=== PATIENT | male | born 1965 | race Caucasian/White ===

== ENCOUNTER 2020-10-19 10:43 | Outpatient (REF) | payer OTHER, SELFPAY ==
--- NOTE | ~2020-10-19 | XR_ITS ---
EXAMINATION: XR BILATERAL SHOULDER, RIGHT HAND CLINICAL INFORMATION: Pain. COMPARISON: None. TECHNIQUE: 4 views each shoulder. 3 views right hand. FINDINGS: Left Shoulder: There is mild loss of left AC joint space with periarticular spurring. The glenohumeral joint space is normal. No visible acute fracture or dislocation seen. The soft tissues are normal. Right Shoulder: The glenohumeral joint space is maintained. There is loss of right AC joint space with hypertrophic bony spurring. There is no loose bodies or bony erosive changes. The soft tissues are normal. Right Hand: There is loss of PIP and DIP joint space with periarticular spurring. No bony erosive changes seen. MCP joint space is normal. XR/XR shoulder RT 1V IMPRESSION: Mild degenerative changes bilateral AC joints. No fracture or dislocation seen. Mild degenerative changes PIP and DIP joints left hand.
--- NOTE | ~2020-10-19 | XR_ITS ---
EXAMINATION: XR BILATERAL SHOULDER, RIGHT HAND CLINICAL INFORMATION: Pain. COMPARISON: None. TECHNIQUE: 4 views each shoulder. 3 views right hand. FINDINGS: Left Shoulder: There is mild loss of left AC joint space with periarticular spurring. The glenohumeral joint space is normal. No visible acute fracture or dislocation seen. The soft tissues are normal. Right Shoulder: The glenohumeral joint space is maintained. There is loss of right AC joint space with hypertrophic bony spurring. There is no loose bodies or bony erosive changes. The soft tissues are normal. Right Hand: There is loss of PIP and DIP joint space with periarticular spurring. No bony erosive changes seen. MCP joint space is normal. XR/XR shoulder LT 1V IMPRESSION: Mild degenerative changes bilateral AC joints. No fracture or dislocation seen. Mild degenerative changes PIP and DIP joints left hand.
--- NOTE | ~2020-10-19 | XR_ITS ---
EXAMINATION: XR BILATERAL SHOULDER, RIGHT HAND CLINICAL INFORMATION: Pain. COMPARISON: None. TECHNIQUE: 4 views each shoulder. 3 views right hand. FINDINGS: Left Shoulder: There is mild loss of left AC joint space with periarticular spurring. The glenohumeral joint space is normal. No visible acute fracture or dislocation seen. The soft tissues are normal. Right Shoulder: The glenohumeral joint space is maintained. There is loss of right AC joint space with hypertrophic bony spurring. There is no loose bodies or bony erosive changes. The soft tissues are normal. Right Hand: There is loss of PIP and DIP joint space with periarticular spurring. No bony erosive changes seen. MCP joint space is normal. XR/XR hand RT 2V IMPRESSION: Mild degenerative changes bilateral AC joints. No fracture or dislocation seen. Mild degenerative changes PIP and DIP joints left hand.
[2020-10-19 11:41] LABS: Hematocrit 41.5 % (42-52); Hemoglobin 13.8 g/dl (14.0-18.0); Mean Corpuscular HGB Conc 33.3 g/dl (31.0-36.0); Mean Corpuscular Hemoglobin 28.6 pg (27.0-33.0); Mean Corpuscular Volume 85.9 fL (80-98); Mean Platelet Volume 11.6 fL (9.4-12.4); Platelet Count 146 X10*3/uL (160-400); Red Blood Count 4.83 X10*6/uL (4.60-5.80); Red Cell Distribution Width 12.3 % (11.0-16.0); White Blood Count 5.9 X10*3/uL (4.8-10.8)
[2020-10-19 12:26] LABS: Prostate Specific Antigen Scr 0.81 ng/mL (<0.05-4.0); TSH reflex Free T4 0.91 uIU/mL (0.32-4.0)
[2020-10-19 12:29] LABS: Creatinine Urine 139.61 mg/dL; Microalbum/Creatinine Ratio Ur 5.7 ug/mg cr
[2020-10-19 12:34] LABS: Alanine Aminotransferase 25 U/L (0-40); Albumin Level 4.3 g/dL (3.5-5.0); Alkaline Phosphatase 68 U/L (39-117); Anion Gap 10 (12-20); Aspartate Amino Transferase 21 U/L (5-37); Bilirubin Total 0.6 mg/dL (0.0-1.0); Blood Urea Nitrogen 14 mg/dL (9-16); Calcium 9.2 mg/dL (8.4-10.2); Carbon Dioxide 29 mmol/L (22-29); Chloride 104 mmol/L (96-108); Cholesterol 150 mg/dL; Estimated Glomerular Filt Rate > 60; Glucose Fasting 109 mg/dL (60-99); HDL Cholesterol 34 mg/dL; LDL Cholesterol Calculated 56 mg/dl; Potassium 3.9 mmol/L (3.3-5.1); Sodium 139 mmol/L (135-145); Total Protein 6.9 g/dL (6.5-8.0); Triglycerides 304 mg/dL
== END 2020-10-19 10:44 | disposition home or self-care (01) ==
LOC: HO.LAB 10:43
PROVIDERS: PCP Physician Assistant; Visit Provider Physician Assistant
DX: S60.551A Superficial foreign body of right hand, initial encounter (principal); M77.8 Other enthesopathies, not elsewhere classified; I10 Essential (primary) hypertension; E78.5 Hyperlipidemia, unspecified; Z12.5 Encounter for screening for malignant neoplasm of prostate
CPT/HCPCS: 36415; 73020; 73120; 80053; 80061; 82043; 84153; 84443; 85027

== ENCOUNTER 2021-01-19 18:31 | Emergency (ER) | payer OTHER, SELFPAY ==
--- NOTE | 2021-01-19 | ECG_ITS ---
Test Reason : CHEST PAIN Blood Pressure : / mmHG Vent. Rate : 077 BPM Atrial Rate : 077 BPM P-R Int : 140 ms QRS Dur : 080 ms QT Int : 390 ms P-R-T Axes : 018 -31 004 degrees QTc Int : 441 ms Normal sinus rhythm Left axis deviation Possible Anterior infarct , age undetermined - could be from body habitus and lead placement Abnormal ECG No previous ECGs available Referred By: Generic ED Physician Electronically Signed By:ELIER DAWKINS
--- NOTE | ~2021-01-19 | XR_ITS ---
EXAMINATION: XR CHEST CLINICAL INFORMATION: Chest pain COMPARISON: None TECHNIQUE: 2 views of the chest were obtained. FINDINGS: The lungs are well expanded. There is no focal consolidation, edema, or effusion. No pneumothorax. The cardiomediastinal silhouette is within normal limits. No acute osseous abnormality. Degenerative changes of the spine. XR/XR chest 2V IMPRESSION: Clear lungs.
[2021-01-19 18:47] VITALS: BP 114/81; PULSE 79; RESP 18; TEMP 37.1; O2SAT 97; BMI 29.2
[2021-01-19 21:42] LABS: Basophils Percent Auto 0.4 % (0-2); Eosinophils Absolute Auto 0.1 X10*3/uL (0.0-0.4); Hematocrit 42.8 % (42-52); Hemoglobin 14.2 g/dl (14.0-18.0); Imm Gran Abs Auto 0.03 X10*3/uL (0.00-0.03); Imm Gran Pct Auto 0.4 % (0.0-0.4); Lymphocytes Absolute Auto 1.8 X10*3/uL (1.2-4.9); Lymphocytes Percent Auto 25.5 % (20-40); MANUAL DIFF FLAG NO; Mean Corpuscular HGB Conc 33.2 g/dl (31.0-36.0); Mean Corpuscular Hemoglobin 29.2 pg (27.0-33.0); Mean Corpuscular Volume 87.9 fL (80-98); Mean Platelet Volume 10.8 fL (9.4-12.4); Monocytes Absolute Auto 0.5 X10*3/uL (0.1-1.2); Monocytes Percent Auto 7.2 % (2-11); Neutrophils Absolute Auto 4.5 X10*3/uL (2.0-8.3); Neutrophils Percent Auto 65.5 % (45-73); Platelet Count 154 X10*3/uL (160-400); Red Blood Count 4.87 X10*6/uL (4.60-5.80); Red Cell Distribution Width 12.4 % (11.0-16.0); White Blood Count 6.9 X10*3/uL (4.8-10.8)
[2021-01-19 21:47] LABS: Prothrombin Time 11.6 SEC (9.9-13.0)
--- NOTE | 2021-01-19 21:47 | ED_ITS ---
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 He denies that he gets worse with deep inspiration or any specific movement. Related Data Previous Rx's Medication Instructions Recorded atorvastatin 20 mg tablet 20 mg PO DAILY #90 tab 08/09/20 amlodipine 5 mg tablet 5 mg PO DAILY #90 tab 11/01/20 benazepril 20 mg tablet 10 mg PO DAILY 90 Days #45 tab 11/09/20 Allergies Allergy/AdvReac Type Severity Reaction Status Date / Time No Known Allergies Allergy Verified 10/09/20 09:18 Review of Systems Review of Systems: Pertinent positives and negatives as stated in HPI 10 point review of systems is otherwise negative. PMFSH Past Medical History Source: nursing notes reviewed Medical History HLD (hyperlipidemia) HTN (hypertension) Prediabetes Family History Family History Father Heart attack Hx of CABG Social History Social History Alcohol intake: current Alcohol intake frequency: holidays/special occasions only Advance Directives: No Advance Directives Information Provided: Yes Current occupation: [employer] Physical Exam Vital Signs: Vital Signs: Last Vital Signs Temp 98.8 F 01/19/21 18:47 Pulse 72 01/19/21 21:59 Resp 16 01/19/21 21:59 BP 114/81 01/19/21 18:47 Pulse Ox 99 01/19/21 21:59 Body Mass Index 29.2 VITAL SIGNS: Reviewed. GENERAL: Well developed, well nourished, in no acute distress. HEAD: Normocephalic/atraumatic EYES: PERRLA, EOMI EARS: Ext canals without abnormality, TMs non-bulging and non-erythematous NOSE: Nares patent bilateral OROPHARYNX: no oral lesions noted, posterior pharynx clear and non-erythematous without noted tonsillar enlargement/erythema/exudates NECK: Supple, no adenopathy LUNGS: Normal breath sounds. No adventitious sounds or accessory muscle use. SpO2<97>, palpation over left chest wall does not reproduce patient's symptoms. CARDIOVASCULAR: Regular rate and rhythm without noted murmurs, no JVD or lower extremity edema. ABDOMEN: Soft, non-tender, non-distended with bowel sounds. MUSCULOSKELETAL: No tenderness, deformities, or effusions noted on gross inspection. EXTREMITIES: No cyanosis, clubbing or edema. SKIN: Inspection of the skin reveals no rashes NEUROLOGIC: Alert and oriented x 4. Strength and sensation to light touch were grossly intact x 4. Course Course Course Narrative: 55-year-old male with history and clinical presentation suggestive of possible costochondritis, but will rule out cardiopulmonary etiologies. Review of all investigations negative for acute findings to demonstrate pneumo memo or cardiac etiology for patient's symptoms and suspect that given the repetitive nature of patient's job this is likely to be an inflammatory process such as costochondritis. Patient is currently asymptomatic and all results were discussed with him at bedside. Will be discharged home in stable condition with instructions to follow-up with his primary care provider. MDM - Chest Pain Lab Data Result diagrams: 01/19/21 21:36 01/19/21 21:36 Labs: Lab Results 01/19/21 01/19/21 01/19/21 Range/Units 21:36 21:36 21:36 WBC 6.9 (4.8-10.8) X10*3/uL RBC 4.87 (4.60-5.80) X10*6/uL Hgb 14.2 (14.0-18.0) g/dl Hct 42.8 (42-52) % MCV 87.9 (80-98) fL MCH 29.2 (27.0-33.0) pg MCHC 33.2 (31.0-36.0) g/dl RDW 12.4 (11.0-16.0) % Plt Count 154 L (160-400) X10*3/uL MPV 10.8 (9.4-12.4) fL Immature Gran % (Auto) 0.4 (0.0-0.4) % Neut % (Auto) 65.5 (45-73) % Lymph % (Auto) 25.5 (20-40) % [place] % (Auto) 7.2 (2-11) % Eos % (Auto) 1.0 (0-4) % Baso % (Auto) 0.4 (0-2) % Lymph # (Auto) 1.8 (1.2-4.9) X10*3/uL [place] # (Auto) 0.5 (0.1-1.2) X10*3/uL Eos # (Auto) 0.1 (0.0-0.4) X10*3/uL Baso # (Auto) 0.0 (0.0-0.2) X10*3/uL Abs Immat Gran (auto) 0.03 (0.00-0.03) X10*3/uL Absolute Neuts (auto) 4.5 (2.0-8.3) X10*3/uL Absolute Nucleated RBC 0.000 (0.0-0.012) X10*3/uL Nucleated RBC % (auto) 0.0 (0.0-0.2) /100WBC PT 11.6 (9.9-13.0) SEC INR 1.0 (0.9-1.1) Sodium 147 H (135-145) mmol/L Potassium 4.3 (3.3-5.1) mmol/L Chloride 108 (96-108) mmol/L Carbon Dioxide 29 (22-29) mmol/L Anion Gap 14 (12-20) BUN 19 H (9-16) mg/dL Creatinine 1.08 (0.5-1.4) mg/dL Estim Creat Clear Calc 70.8 Estimated GFR > 60 Random Glucose 127 H (60-115) mg/dL Calcium 9.8 D (8.4-10.2) mg/dL Total Bilirubin 0.6 (0.0-1.0) mg/dL AST 24 (5-37) U/L ALT 35 (0-40) U/L Alkaline Phosphatase 78 (39-117) U/L Troponin I High Sens (<3.5-35.0) ng/L Total Protein 7.6 (6.5-8.0) g/dL Albumin 4.5 (3.5-5.0) g/dL 01/19/21 Range/Units 21:36 WBC (4.8-10.8) X10*3/uL RBC (4.60-5.80) X10*6/uL Hgb (14.0-18.0) g/dl Hct (42-52) % MCV (80-98) fL MCH (27.0-33.0) pg MCHC (31.0-36.0) g/dl RDW (11.0-16.0) % Plt Count (160-400) X10*3/uL MPV (9.4-12.4) fL Immature Gran % (Auto) (0.0-0.4) % Neut % (Auto) (45-73) % Lymph % (Auto) (20-40) % [place] % (Auto) (2-11) % Eos % (Auto) (0-4) % Baso % (Auto) (0-2) % Lymph # (Auto) (1.2-4.9) X10*3/uL [place] # (Auto) (0.1-1.2) X10*3/uL Eos # (Auto) (0.0-0.4) X10*3/uL Baso # (Auto) (0.0-0.2) X10*3/uL Abs Immat Gran (auto) (0.00-0.03) X10*3/uL Absolute Neuts (auto) (2.0-8.3) X10*3/uL Absolute Nucleated RBC (0.0-0.012) X10*3/uL Nucleated RBC % (auto) (0.0-0.2) /100WBC PT (9.9-13.0) SEC INR (0.9-1.1) Sodium (135-145) mmol/L Potassium (3.3-5.1) mmol/L Chloride (96-108) mmol/L Carbon Dioxide (22-29) mmol/L Anion Gap (12-20) BUN (9-16) mg/dL Creatinine (0.5-1.4) mg/dL Estim Creat Clear Calc Estimated GFR Random Glucose (60-115) mg/dL Calcium (8.4-10.2) mg/dL Total Bilirubin (0.0-1.0) mg/dL AST (5-37) U/L ALT (0-40) U/L Alkaline Phosphatase (39-117) U/L Troponin I High Sens < 3.5 (<3.5-35.0) ng/L Total Protein (6.5-8.0) g/dL Albumin (3.5-5.0) g/dL ECG Data ECG #1: Interpretation: Normal sinus rhythm, HR-77, no STEMI, MN/QRS/QTC are within normal limits. Discharge Plan Discharge Clinical Impression: Atypical chest pain, Acute costochondritis Patient Disposition: Home, Self-Care Instructions: Costochondritis (ED) Additional Instructions: 1. Resume all home medications as prescribed. 2. Tylenol 1000 mg, orally, every 6 hours as needed for pain control. Do not exceed 4000 mg within 24 hours. 3. Lidocaine patch, these are available [id number], apply to area of maximal pain as directed on the outside packaging. 4. For breakthrough pain recommend ibuprofen 400 mg, orally with milk or food, every 6 hours as needed for pain control. 5. Recommend following up with the primary care provider in the next 2-3 days for re-evaluation and further outpatient management. Return to the ER for acute worsening of her symptoms. Prescriptions: No Action atorvastatin 20 mg tablet 20 mg PO DAILY Qty: 90 RF: 0 amlodipine 5 mg tablet 5 mg PO DAILY Qty: 90 RF: 1 benazepril 20 mg tablet 10 mg PO DAILY 90 Days Qty: 45 RF: 1 Referrals: Physician,Unknown [Primary Care Provider] - 2 days
[2021-01-19 21:59] VITALS: PULSE 72; RESP 16; O2SAT 99
[2021-01-19] MEDS: Acetaminophen 325 MG TABLET 975 MG PO (22:04)
[2021-01-19] MEDS: Ibuprofen 400 MG TABLET PO (22:04)
[2021-01-19 22:05] LABS: Alanine Aminotransferase 35 U/L (0-40); Albumin Level 4.5 g/dL (3.5-5.0); Alkaline Phosphatase 78 U/L (39-117); Anion Gap 14 (12-20); Aspartate Amino Transferase 24 U/L (5-37); Bilirubin Total 0.6 mg/dL (0.0-1.0); Blood Urea Nitrogen 19 mg/dL (9-16); Calcium 9.8 mg/dL (8.4-10.2); Carbon Dioxide 29 mmol/L (22-29); Chloride 108 mmol/L (96-108); Creatinine Clr Calc Pharmacy 70.8; Estimated Glomerular Filt Rate > 60; Glucose Random 127 mg/dL (60-115); Potassium 4.3 mmol/L (3.3-5.1); Sodium 147 mmol/L (135-145); Total Protein 7.6 g/dL (6.5-8.0)
[2021-01-19] MEDS: Lidocaine 4 % Patch ADH..PATCH 1 PATCH TRANSDERMA (22:07)
[2021-01-19 22:10] LABS: Troponin-I High Sensitivity < 3.5 ng/L (<3.5-35.0)
== END 2021-01-19 23:59 | disposition home or self-care (01) ==
PROVIDERS: Emergency Provider Student in an Organized Health Care Education/Training Program
DX: M94.0 Chondrocostal junction syndrome [Tietze] (principal); R07.9 Chest pain, unspecified; I25.10 Atherosclerotic heart disease of native coronary artery without angina pectoris; Z79.899 Other long term (current) drug therapy
CPT/HCPCS: 36415; 71046; 80053; 84484; 85025; 85610; 93005; 99283; 99284

== ENCOUNTER 2021-08-13 10:14 | Outpatient (REF) | payer OTHER, SELFPAY ==
[2021-08-13 10:59] LABS: Hematocrit 42.7 % (42.0-52.0); Mean Corpuscular HGB Conc 32.8 g/dl (31.0-36.0); Mean Corpuscular Hemoglobin 28.2 pg (27.0-33.0); Mean Corpuscular Volume 85.9 fL (80.0-98.0); Platelet Count 142 X10*3/uL (160-400); Red Blood Count 4.97 X10*6/uL (4.60-5.80); Red Cell Distribution Width 12.4 % (11.0-16.0); White Blood Count 6.8 X10*3/uL (4.8-10.8)
[2021-08-13 11:09] LABS: Estimated Average Glucose 137 mg/dL; Hemoglobin A1c % 6.4 %
[2021-08-13 11:27] LABS: Alanine Aminotransferase 26 U/L (0-40); Albumin Level 4.2 g/dL (3.5-5.0); Alkaline Phosphatase 70 U/L (39-117); Anion Gap 11 (12-20); Aspartate Amino Transferase 22 U/L (5-37); Bilirubin Total 0.7 mg/dL (0.0-1.0); Blood Urea Nitrogen 15 mg/dL (9-16); Calcium 9.6 mg/dL (8.4-10.2); Carbon Dioxide 28 mmol/L (22-29); Chloride 103 mmol/L (96-108); Cholesterol 158 mg/dL; Estimated Glomerular Filt Rate > 60; Glucose Fasting 109 mg/dL (60-99); HDL Cholesterol 33 mg/dL; LDL Cholesterol Calculated 57 mg/dl; Potassium 4.4 mmol/L (3.3-5.1); Sodium 138 mmol/L (135-145); Total Protein 7.1 g/dL (6.5-8.0); Triglycerides 342 mg/dL
[2021-08-13 11:51] LABS: Prostate Specific Antigen Scr 0.95 ng/mL (<0.05-4.0); TSH reflex Free T4 1.18 uIU/mL (0.32-4.0)
[2021-08-13 12:05] LABS: Creatinine Urine 231.96 mg/dL
== END 2021-08-13 10:15 | disposition home or self-care (01) ==
LOC: HO.LAB 10:14
PROVIDERS: PCP Physician Assistant; Visit Provider Physician Assistant
DX: I10 Essential (primary) hypertension (principal); R73.09 Other abnormal glucose; E78.2 Mixed hyperlipidemia; Z12.5 Encounter for screening for malignant neoplasm of prostate
CPT/HCPCS: 36415; 80053; 80061; 82043; 83036; 84153; 84443; 85027

== ENCOUNTER 2022-03-11 11:44 | Outpatient (REF) | payer OTHER, SELFPAY ==
[2022-03-11 12:47] LABS: Estimated Average Glucose 128 mg/dL; Hemoglobin A1c % 6.1 %
[2022-03-11 12:49] LABS: Alanine Aminotransferase 25 U/L (0-40); Albumin Level 4.6 g/dL (3.5-5.0); Alkaline Phosphatase 77 U/L (39-117); Anion Gap 16 (12-20); Aspartate Amino Transferase 23 U/L (5-37); Bilirubin Total 0.4 mg/dL (0.0-1.0); Blood Urea Nitrogen 13 mg/dL (9-16); Calcium 9.5 mg/dL (8.4-10.2); Carbon Dioxide 26 mmol/L (22-29); Chloride 103 mmol/L (96-108); Cholesterol 162 mg/dL; Estimated Glomerular Filt Rate > 60; Glucose Fasting 100 mg/dL (60-99); HDL Cholesterol 38 mg/dL; LDL Cholesterol Calculated 64 mg/dl; Potassium 4.3 mmol/L (3.3-5.1); Sodium 141 mmol/L (135-145); Total Protein 7.7 g/dL (6.5-8.0); Triglycerides 302 mg/dL
[2022-03-11 13:09] LABS: TSH reflex Free T4 0.88 uIU/mL (0.32-4.0)
== END 2022-03-11 11:45 | disposition home or self-care (01) ==
LOC: HO.LAB 11:44
PROVIDERS: PCP Physician Assistant; Visit Provider Physician Assistant
DX: I10 Essential (primary) hypertension (principal); R73.09 Other abnormal glucose; E78.2 Mixed hyperlipidemia; R07.9 Chest pain, unspecified
CPT/HCPCS: 36415; 80053; 80061; 83036; 84443

== ENCOUNTER 2022-09-07 09:58 | Outpatient (REF) | payer OTHER, SELFPAY ==
[2022-09-07 12:24] LABS: Hematocrit 44.6 % (42.0-52.0); Hemoglobin 14.5 g/dl (14.0-18.0); Mean Corpuscular HGB Conc 32.5 g/dl (31.0-36.0); Mean Corpuscular Hemoglobin 28.4 pg (27.0-33.0); Mean Corpuscular Volume 87.3 fL (80.0-98.0); Mean Platelet Volume 11.4 fL (9.4-12.4); Platelet Count 159 X10*3/uL (160-400); Red Blood Count 5.11 X10*6/uL (4.60-5.80); Red Cell Distribution Width 12.1 % (11.0-16.0); White Blood Count 5.4 X10*3/uL (4.8-10.8)
[2022-09-07 12:36] LABS: Estimated Average Glucose 131 mg/dL; Hemoglobin A1c % 6.2 %
[2022-09-07 12:47] LABS: Alanine Aminotransferase 22 U/L (0-40); Albumin Level 4.5 g/dL (3.5-5.0); Alkaline Phosphatase 77 U/L (39-117); Anion Gap 12 (12-20); Aspartate Amino Transferase 24 U/L (5-37); Bilirubin Total 0.8 mg/dL (0.0-1.0); Blood Urea Nitrogen 13 mg/dL (9-16); Calcium 9.5 mg/dL (8.4-10.2); Carbon Dioxide 28 mmol/L (22-29); Chloride 107 mmol/L (96-108); Cholesterol 155 mg/dL; Estimated Glomerular Filt Rate > 60; Glucose Fasting 99 mg/dL (60-99); HDL Cholesterol 38 mg/dL; LDL Cholesterol Calculated 83 mg/dl; Potassium 5.2 mmol/L (3.3-5.1); Sodium 142 mmol/L (135-145); Total Protein 7.2 g/dL (6.5-8.0); Triglycerides 170 mg/dL
[2022-09-07 12:49] LABS: Creatinine Urine 144.85 mg/dL; Microalbum/Creatinine Ratio Ur 5.5 ug/mg cr
[2022-09-07 13:06] LABS: Prostate Specific Antigen Scr 1.32 ng/mL (<0.05-4.0); TSH reflex Free T4 1.55 uIU/mL (0.32-4.0)
== END 2022-09-07 09:59 | disposition home or self-care (01) ==
LOC: HO.HMGCLDS 09:58
PROVIDERS: PCP Physician Assistant; Visit Provider Physician Assistant
DX: E11.9 Type 2 diabetes mellitus without complications (principal); I10 Essential (primary) hypertension; E78.2 Mixed hyperlipidemia; Z12.5 Encounter for screening for malignant neoplasm of prostate
CPT/HCPCS: 36415; 80053; 80061; 82043; 83036; 84153; 84443; 85027

== ENCOUNTER 2023-03-01 09:16 | Outpatient (REF) | payer OTHER, SELFPAY ==
[2023-03-01 10:05] LABS: Hematocrit 42.1 % (42.0-52.0); Hemoglobin 13.9 g/dl (14.0-18.0); Mean Corpuscular Volume 87.7 fL (80.0-98.0); Platelet Count 127 X10*3/uL (160-400); White Blood Count 5.4 X10*3/uL (4.8-10.8)
[2023-03-01 10:35] LABS: Alanine Aminotransferase 23 U/L (0-40); Albumin Level 4.1 g/dL (3.5-5.0); Alkaline Phosphatase 69 U/L (39-117); Anion Gap 13 (12-20); Aspartate Amino Transferase 37 U/L (5-37); Bilirubin Total 0.4 mg/dL (0.0-1.0); Blood Urea Nitrogen 8 mg/dL (9-16); Calcium 8.9 mg/dL (8.4-10.2); Carbon Dioxide 23 mmol/L (22-29); Chloride 107 mmol/L (96-108); Cholesterol 155 mg/dL (<200); Estimated Glomerular Filt Rate > 60; Glucose Fasting 110 mg/dL (60-99); Glucose Random 110 mg/dL (60-115); HDL Cholesterol 30 mg/dL (>40); LDL Cholesterol Calculated 58 mg/dL (<100); Potassium 3.9 mmol/L (3.3-5.1); Sodium 139 mmol/L (135-145); Triglycerides 337 mg/dL (<150)
[2023-03-01 11:04] LABS: Estimated Average Glucose 123 mg/dL; Hemoglobin A1c % 5.9 % (<6.0)
== END 2023-03-01 09:17 | disposition home or self-care (01) ==
LOC: HO.LAB 09:16
PROVIDERS: PCP Physician Assistant; Visit Provider Physician Assistant
DX: E78.2 Mixed hyperlipidemia (principal); E87.5 Hyperkalemia; I10 Essential (primary) hypertension; E11.9 Type 2 diabetes mellitus without complications
CPT/HCPCS: 36415; 80048; 80053; 80061; 83036; 85027

== ENCOUNTER 2023-03-10 10:07 | Outpatient (AMB) | payer OTHER, SELFPAY ==
[2023-03-10 10:10] VITALS: BP 120/68; PULSE 56; RESP 17; O2SAT 98; BMI 26.9
--- NOTE | 2023-03-10 10:10 | A.OFFPC_ITS ---
Vital Signs 3 03/10/23 10:10 Height 5 ft 4.5 in Weight 159 lb 4 oz BMI 26.9 BP 120/68 Blood Pressure Location Lt brachial Position Sitting Respiration 17 Pulse 56 Pulse Source Pulse Oximeter Pulse Oximetry (%) 98 Oxygen Delivery Method Room Air Intake Visit Reasons: f/u HTN Intake Note: Patient is here to follow up on HTN. 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 Accompanied by: Self / Same As Patient Allergies No Known Allergies Allergy (Verified 03/10/23 10:34) Medication List - Last Reconciled 03/10/23 by Jordon Tang PA-C amlodipine 5 mg PO DAILY atorvastatin 20 mg PO DAILY benazepril 10 mg (1/2 x 20 mg) PO DAILY 90 days Tobacco use date assessed: 09/09/22 Dental Screening Dental Screen Date: 03/10/23 Did you have a dental visit in the last 12 months?: No Did you have a dental problem in the last 6 months where you did not have access to dental care?: No Was dental information given to patient?: Yes HPI f/u HTN 2 HPI0 Details Patient is a 57-year-old male here today for follow-up visit. l Patient has a past medical history significant for hypertension and hyperlipidemia, IGM. Concern--> continues to have intermittent left ear/mastoid pain that radiates into his temporal and parietal regions of his head. Has not used any medication for this. Has seen ENT specialist whom advised he may have a dental issue which she is not in agreement with. He seems fresh read today in office and would like a diagnosis. He is willing to get imaging .. HTN: Does not check regularly at home.? Today's blood pressure in office acceptable.? He continues on benazepril 10 mg and amlodipine 5mg.? He does report over the last several months having exertional chest discomforts.? .. Hyperlipidemia: Patient's most recent fasting blood sugar improved LDL. Unfortunately triglycerides elevated and will work on lifestyle modifications.. .. Impaired glucose metabolism:? Patient's A1c improved to 5.9 from 6.2..? Has been working on lifestyle management modifications. Laboratory Tests 09/07/22 03/01/23 03/01/23 10:03 09:52 09:52 Hgb 13.9 L Fasting Glucose 110 H Hemoglobin A1c % 5.9 Triglycerides 170 337 H Cholesterol 155 LDL Cholesterol, C alc 58 [facility] Medical History HLD (hyperlipidemia) HTN (hypertension) Prediabetes Surgical History History of endoscopy History of colonoscopy Family History Father Heart attack, Onset Age: 50 Hx of CABG Mother Diabetes Social History Housing: House Alcohol intake: current Alcohol intake frequency: holidays/special occasions only Patient Tobacco Use Status: Never used Tobacco e-Cigarette/Vaping Use: Never Used Second Hand Smoke Exposure: No service: No Current occupational status: employed Current occupation: [email or web address] Cognitive needs: No Hearing needs: No Vision needs: No Questionnaire PHQ-9 Over the last 2 weeks, how often have you been bothered by any of the following problems? 1. Little interest or pleasure in doing things: not at all 2. Feeling down, depressed, or hopeless: not at all 3. Trouble falling or staying asleep, or sleeping too much: not at all 4. Feeling tired or having little energy: not at all 5. Poor appetite or overeating: not at all 6. Feeling bad about yourself - or that you are a failure or have let yourself or your family down: not at all 7. Trouble concentrating on things, such as reading the newspaper or watching television: not at all 8. Moving or speaking so slowly that other people could have noticed. Or the opposite - being so fidgety or restless that you have been moving around a lot more than usual: not at all 9. Thoughts that you would be better off or of hurting yourself in some way: not at all Total score: 0 Depression Screening Interpretation: Negative 35316 - PHQ-9 Billing: Yes Source: Developed by Drs. Brendan Cabrera, Collette Chirinos, Michael Gaiens and colleagues, with an educational binta from [employer]. Thrive Questionnaire Date Thrive assessed: 09/09/22 LIANNA-7 AMB Questionnaire LIANNA-7 Date LIANNA - 7 assessed: 09/09/22 Source: Developed by Drs. Brendan Cabrera, Collette Chirinos, Michael Gaines and colleagues, with an educational binta from [employer]. Review of Systems Const Denies headache(s) Eyes Denies loss of vision ENT Denies vertigo, Denies dizziness, Denies headache(s) and Denies sore throat Card Denies chest pain, Denies leg edema and Denies lightheadedness Resp Denies cough, Denies hemoptysis and Denies wheezing GI Denies abdominal pain, Denies melena, Denies constipation, Denies diarrhea and Denies vomiting Denies dysuria, Denies urinary frequency and Denies urinary urgency Musc Denies arthralgias, Denies joint swelling, Denies numbness and Denies tingling Neuro Denies Abnormal speech present, Denies behavioral changes, Denies vertigo, Denies dizziness, Denies headache(s), Denies loss of vision, Denies memory loss, Denies numbness and Denies tingling Psych Denies anxiety, Denies behavioral changes, Denies depression, Denies memory loss and Denies panic attacks Zach/Lymph Denies easy bleeding and Denies easy bruising Aller/Immun Denies wheezing Physical exam (Primary Care) Vital Signs: Last Vital Signs Pulse 56 03/10/23 10:10 Resp 17 03/10/23 10:10 BP 120/68 03/10/23 10:10 Pulse Ox 98 03/10/23 10:10 Oxygen Delivery Method Room Air 03/10/23 10:10 BMI result Body Mass Index 26.9 Tobacco/Smoking Status: Tobacco use Status Tobacco use date assessed 09/09/22 03/10/23 10:10 Patient Tobacco Use Status Never used Tobacco 03/10/23 10:10 e-Cigarette/Vaping Use Never Used 03/10/23 10:10 PHQ-9: PHQ-9 Score PHQ-9: Total score 0 03/10/23 10:38 Depression Screening Interpretation: Negative Thrive Assessment: Date of Thrive Assessment Date Thrive assessed 09/09/22 03/10/23 10:10 Const General: healthy appearing, no acute distress, alert and awake Nutritional Appearance: well nourished Orientation/consciousness: oriented to person, oriented to place and oriented to time [facility] Head images: 2 1. AREA PAIN IS REPORTED Ears: TM's normal bilaterally General nose exam: Normal nasal mucous membranes and turbinates present Eyes Conjunctivae: conjunctivae normal Sclerae: sclerae normal Pupils: Equal, round and reactive pupils present Neck Neck: Yes no lymphadenopathy and Yes no JVD Thyroid: Thyroid normal Carotids: no bruits Resp Effort & Inspection: normal respiratory effort and not tachypneic Auscultation: no crackles, no rales, no rhonchi and no wheezes Cardio Rate: regular rate Rhythm: regular rhythm Heart sounds: no murmurs and normal S1 and S2 GI Palpation (GI): Soft to palpation, nontender, no hepatomegaly and no splenomegaly Auscultation: normal bowel sounds Skin General skin exam: no rashes or lesions noted and dry skin Neuro General: oriented to person, oriented to place and oriented to time Cranial nerves: Yes Equal, round and reactive pupils present Speech: No Abnormal speech present Gait exam (Neuro): Normal gait present Motor exam (neuro): no tremor noted Extrem Right upper extremity: full ROM Left upper extremity: full ROM Right lower extremity: full ROM; no edema Left lower extremity: full ROM; no edema Psych Mental Status: mental status grossly normal Speech and movement: Normal speech and movement present Affect: normal affect Attitude: cooperative Thought process: Normal thought process present Office Procedures Flu Questionnaire Does the patient have a severe egg allergy?: No Does the patient have severe life threatening allergies?: No Does the patient have a fever or illness today?: No Has the patient ever had Guillain-Orinda Syndrome?: No Has the patient ever had any past reaction to a flu shot?: No Immunizations flu vacc [id number] 6mos up(PF) 60 mcg(15 mcgx4)/0.5 mL IM syringe Performing Provider: Jordon Tang PA-C Performing Location: [facility] Administered by: JACK Bradley on 03/10/23 10:20 2 Dose Route Admin Location Dispensed Lot Number Expiration Date NDC Rack Maker 0.5 mL IM Left Deltoid 0.5 mL [id number] 12/07/23 69168-545-59 [employer] 2 VIS Given Date VIS Provided VIS Publication Date 03/10/23 Single Vaccine 21 Eligibility Eligibility Date Funding Source Not [facility] Eligible 03/10/23 Private Assessment and Plan Assessment & Plan (1) HTN (hypertension): Code(s): I10 - Essential (primary) hypertension Qualifiers: Hypertension type: essential hypertension Qualified Code(s): I10 - Essential (primary) hypertension Plan: Patient's blood pressure acceptable today in office. Will continue his current dose of antihypertensive medications with goal blood pressure to be below 140/90 (2) Pain of left mastoid: Code(s): H92.02 - Otalgia, left ear Plan: He reports having left ear and surrounding left ear pain on off for many years now. Has seen you is agreement with the diagnosis of a dental issue. He reports his hearing is not impaired. Physical exam without any evidence of otitis externa or media. He has not used any medications for his intermittent pain Differential diagnosis--> atypical migraines, cervical spine disease, mastoiditis. Will get CT mastoid/head to evaluate for chronic mastoiditis as his pain is mostly located behind his ear. (3) HLD (hyperlipidemia): Code(s): E78.5 - Hyperlipidemia, unspecified Qualifiers: Hyperlipidemia type: mixed hyperlipidemia Qualified Code(s): E78.2 - Mixed hyperlipidemia Plan: Patient's most recent lipid panel showing acceptable total cholesterol and LDL. Will continue his current dose of statin therapy with goal LDL to be below 160 Of note triglycerides elevated at 337. Orders: Orders 2 Lipid Panel 6 Months E78.2 - Mixed hyperlipidemia Prostate Specific Antigen Scr 6 Months R73.09 - Other abnormal glucose, Z12.5 - Encounter for screening for malignant neoplasm of prostate CT mastoid Today G89.29 - Other chronic pain, H92.02 - Otalgia, left ear Influenza [id number] Immunization Today Z23 - Encounter for immunization Comprehensive Chrisman. Panel Fast 6 Months I10 - Essential (primary) hypertension Hemoglobin A1c 6 Months R73.09 - Other abnormal glucose Medications: New 2 baclofen 5 mg PO BID 7 days PRN 14 tabs 0RF muscle spasm G89.29 - Other chronic pain, H92.02 - Otalgia, left ear Coding Level of Care Code Est Pt Level 4 (16078) Diagnoses Essential hypertension I10 Hypertension type: essential hypertension Pain of left mastoid H92.02 Mixed hyperlipidemia E78.2 Hyperlipidemia type: mixed hyperlipidemia
== END 2023-03-10 10:58 | disposition home or self-care (01) ==
PROVIDERS: Visit Provider Physician Assistant
DX: I10 Essential (primary) hypertension (principal); H92.02 Otalgia, left ear; E78.2 Mixed hyperlipidemia; Z23 Encounter for immunization
CPT/HCPCS: 90471; 90686; 99214

== ENCOUNTER 2023-04-08 07:51 | Outpatient (REF) | payer OTHER, SELFPAY ==
--- NOTE | ~2023-04-08 | CT_ITS ---
EXAMINATION: CT SCAN OF THE TEMPORAL BONES WITHOUT CONTRAST CLINICAL INFORMATION: Left mastoid/ear pain, evaluate for mastoiditis COMPARISON: None available. TECHNIQUE: Multidetector helical imaging was performed in the axial plane with generation of oblique axial and coronal reformatted projections. This CT examination was performed using dose optimization techniques as appropriate, variously including the following: *Automated exposure control *Adjustment of mA and/or kV according to patient size (this includes techniques or standardized protocols for targeted exams where dose is matched to indication/reason for exam; i.e. extremities or head) *Use of iterative reconstruction technique DLP: 199 mGy-cm. FINDINGS: --Right Temporal Bone -- The middle ear cleft is clear and the ossicles are normal. Normal mineralization of the otic capsule and fissula ante fenestram is noted. The cochlea, vestibule, vestibular aqueduct, and facial nerve course are normal. The semicircular canals are normal. The internal auditory canal is normal. The external auditory canal is normal. The mastoid air cells are well aerated. The right carotid canal and jugular foramen are normal. The temporomandibular joint is normal. --Left Temporal Bone -- The middle ear cleft is clear and the ossicles are normal. Normal mineralization of the otic capsule and fissula ante fenestram is noted. The cochlea, vestibule, vestibular aqueduct, and facial nerve course are normal. The semicircular canals are normal. The internal auditory canal is normal. The external auditory canal is normal. The mastoid air cells are well aerated. The right carotid canal and jugular foramen are normal. The temporomandibular joint is normal. -- Other Findings -- The bilateral carotid canals and jugular foramina are normal. Mucus retention cyst/polyp in the right maxillary sinus. The visualized intracranial structures are within normal limits. CT/CT internal auditory canals BI IMPRESSION: The temporal bones appear within normal limits. Well aerated mastoid air cells without evidence of acute mastoiditis.
== END 2023-04-08 07:52 | disposition home or self-care (01) ==
LOC: HO.CT 07:51
PROVIDERS: Visit Provider Physician Assistant
DX: H92.02 Otalgia, left ear (principal)
CPT/HCPCS: 70480

== ENCOUNTER 2023-04-28 13:32 | Outpatient (AMB) | payer OTHER, SELFPAY ==
--- NOTE | 2023-04-28 13:34 | A.OFFPC_ITS ---
Vital Signs 3 04/28/23 14:39 Height 5 ft 4.5 in Weight 161 lb 6 oz BMI 27.3 Blood Pressure Location Lt brachial Position Sitting Pulse 70 Pulse Source Pulse Oximeter Pulse Oximetry (%) 99 Oxygen Delivery Method Room Air Intake Visit Reasons: back pain due to fall Intake Note: Pt here for a fell backwards down the stairs last night at around 8pm. 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 He reports last night falling down some stairs and injuring his right ribcage. Denies any head or neck trauma. He did not go the hospital and has been using [id number] analgesics. Has not been able to make it to work due to his pain and stiffness. Reports most of his pain is located over his right rib a, right elbow, right buttocks and hip region. He reports taking a deep breath does cause some pain in his right flank. [facility], [facility] Medical History HLD (hyperlipidemia) HTN (hypertension) Prediabetes Surgical History History of endoscopy History of colonoscopy Family History Father Heart attack, Onset Age: 50 Hx of CABG Mother Diabetes Social History Housing: House Alcohol intake: current Alcohol intake frequency: holidays/special occasions only Patient Tobacco Use Status: Never used Tobacco e-Cigarette/Vaping Use: Never Used Second Hand Smoke Exposure: No service: No Current occupational status: employed Current occupation: [employer] Cognitive needs: No Hearing needs: No Vision needs: No Questionnaire Thrive Questionnaire Date Thrive assessed: 09/09/22 LIANNA-7 AMB Questionnaire LIANNA-7 Date LIANNA - 7 assessed: 09/09/22 Source: Developed by Drs. Brendan Cabrera, Collette Chirinos, Michael Gaines and colleagues, with an educational binta from [employer]. Review of Systems Const Denies headache(s) Eyes Denies loss of vision ENT Denies vertigo, Denies dizziness, Denies headache(s) and Denies sore throat Card Denies chest pain, Denies leg edema and Denies lightheadedness Resp Denies cough, Denies hemoptysis and Denies wheezing GI Denies abdominal pain, Denies melena, Denies constipation, Denies diarrhea and Denies vomiting Denies dysuria, Denies urinary frequency and Denies urinary urgency Musc Denies arthralgias, Denies joint swelling, Denies numbness and Denies tingling Neuro Denies Abnormal speech present, Denies behavioral changes, Denies vertigo, Denies dizziness, Denies headache(s), Denies loss of vision, Denies memory loss, Denies numbness and Denies tingling Psych Denies anxiety, Denies behavioral changes, Denies depression, Denies memory loss and Denies panic attacks Zach/Lymph Denies easy bleeding and Denies easy bruising Aller/Immun Denies wheezing Physical exam (Primary Care) Vital Signs: Last Vital Signs Pulse 70 04/28/23 14:39 Pulse Ox 99 04/28/23 14:39 Oxygen Delivery Method Room Air 04/28/23 14:39 BMI result Body Mass Index 27.3 Tobacco/Smoking Status: Tobacco use Status Tobacco use date assessed 09/09/22 04/28/23 13:34 Patient Tobacco Use Status Never used Tobacco 04/28/23 13:34 e-Cigarette/Vaping Use Never Used 04/28/23 13:34 Thrive Assessment: Date of Thrive Assessment Date Thrive assessed 09/09/22 04/28/23 13:34 Const General: healthy appearing, no acute distress, alert and awake Nutritional Appearance: well nourished Orientation/consciousness: oriented to person, oriented to place and oriented to time HENMT Ears: TM's normal bilaterally General nose exam: Normal nasal mucous membranes and turbinates present Eyes Conjunctivae: conjunctivae normal Sclerae: sclerae normal Pupils: Equal, round and reactive pupils present Neck Neck: Yes no lymphadenopathy and Yes no JVD Thyroid: Thyroid normal Carotids: no bruits Chest Chest/axillae images: 2 1. PAIN LOCATED IN THE AREA OUTLINED Resp Effort & Inspection: normal respiratory effort and not tachypneic Auscultation: no crackles, no rales, no rhonchi and no wheezes Cardio Rate: regular rate Rhythm: regular rhythm Heart sounds: no murmurs and normal S1 and S2 GI Palpation (GI): Soft to palpation, nontender, no hepatomegaly and no splenomegaly Auscultation: normal bowel sounds Skin General skin exam: no rashes or lesions noted and dry skin Neuro General: oriented to person, oriented to place and oriented to time Cranial nerves: Yes Equal, round and reactive pupils present Speech: No Abnormal speech present Gait exam (Neuro): Normal gait present Motor exam (neuro): no tremor noted Extrem Other: RIGHT ELBOW BANDAGE Right upper extremity: full ROM Left upper extremity: full ROM Right lower extremity: full ROM; no edema Left lower extremity: full ROM; no edema Psych Mental Status: mental status grossly normal Speech and movement: Normal speech and movement present Affect: normal affect Attitude: cooperative Thought process: Normal thought process present Assessment and Plan Assessment & Plan (1) Status post fall: Code(s): Z91.81 - History of falling Plan: Patient reporting a fall down stairs yesterday. He reports injuring his right ribs, hip in right elbow. Get x-rays of areas affected to rule out fracture. Will supply patient with pain medication anti-inflammatory muscle relaxer. Given work note for the next week to rest and recover from what seems to be soft tissue injuries. (2) Rib pain on right side: Code(s): R07.81 - Pleurodynia (3) Coxalgia: Code(s): M25.559 - Pain in unspecified hip Qualifiers: Laterality: right Qualified Code(s): M25.551 - Pain in right hip (4) Right elbow pain: Code(s): M25.521 - Pain in right elbow Orders: Orders 2 XR sacrum coccyx min 2V 04/28/23 M25.559 - Pain in unspecified hip XR elbow RT 2V 04/28/23 M25.521 - Pain in right elbow Medications: New 2 tramadol 50 mg PO Q8H 5 days PRN 15 tabs 0RF pain M25.559 - Pain in unspecified hip ibuprofen 600 mg PO TID 7 days 21 tabs 0RF M25.559 - Pain in unspecified hip tizanidine 2 mg PO BEDTIME 14 days PRN 14 tabs 0RF muscle spasticity M25.559 - Pain in unspecified hip Discontinued 2 baclofen Discontinued Reason: Doctor's Order 5 mg PO BID 7 days PRN 14 tabs 0RF muscle spasm G89.29 - Other chronic pain, H92.02 - Otalgia, left ear Coding Level of Care Code Est Pt Level 3 (70870) Diagnoses Status post fall Z91.81 Rib pain on right side R07.81 Pain of right hip joint M25.551 Laterality: right Right elbow pain M25.521
[2023-04-28 14:39] VITALS: PULSE 70; O2SAT 99; BMI 27.3
== END 2023-04-28 15:17 | disposition home or self-care (01) ==
PROVIDERS: PCP Physician Assistant; Visit Provider Physician Assistant
DX: Z91.81 History of falling (principal); R07.81 Pleurodynia; M25.551 Pain in right hip; M25.521 Pain in right elbow
CPT/HCPCS: 99213

== ENCOUNTER 2023-04-28 15:26 | Outpatient (REF) | payer OTHER, SELFPAY ==
--- NOTE | ~2023-04-28 | XR_ITS ---
EXAMINATION: XR SACRUM AND COCCYX CLINICAL INFORMATION: Pain status-post fall. COMPARISON: None available. TECHNIQUE: 3 frontal and lateral views of the sacrum and coccyx were obtained. FINDINGS: There are no fractures. No bone, joint or soft tissue abnormality is demonstrated. XR/XR sacrum coccyx min 2V IMPRESSION: Unremarkable examination.
--- NOTE | ~2023-04-28 | XR_ITS ---
EXAMINATION: XR ELBOW, RIGHT CLINICAL INFORMATION: Pain status-post fall. COMPARISON: None available. TECHNIQUE: AP, lateral, and oblique views of the right elbow. FINDINGS: Bony alignment and mineralization are normal. No fracture or dislocation is seen. There is no right elbow joint effusion. A small accessory ossification center is seen adjacent to the lateral epicondyle of the distal right humerus. There is an enthesophyte arising from the lateral epicondyle of the distal right humerus. There is posterior elbow soft tissue swelling. XR/XR elbow RT 2V IMPRESSION: There is posterior elbow soft tissue swelling. Otherwise, unremarkable right elbow radiographs, without fracture, dislocation or joint effusion noted.
--- NOTE | ~2023-04-28 | XR_ITS ---
EXAMINATION: XR RIBS, RIGHT WITH PA CHEST CLINICAL INFORMATION: Pleurodynia status-post fall. COMPARISON: Chest radiographs dated 01/19/2021, together with a PA view of the chest. TECHNIQUE: 4 views of the right ribs were obtained. FINDINGS: Lungs are clear. No consolidation, pneumothorax, or pleural effusion. The cardiomediastinal silhouette and pulmonary vasculature are normal. Osseous structures are unremarkable. Ribs are intact. No fractures are identified. XR/XR ribs RT min 3V w CXR1V IMPRESSION: Unremarkable examination.
== END 2023-04-28 15:27 | disposition home or self-care (01) ==
LOC: HO.XRAY 15:26
PROVIDERS: PCP Physician Assistant; Visit Provider Physician Assistant
DX: M25.521 Pain in right elbow (principal); R07.81 Pleurodynia; M25.559 Pain in unspecified hip
CPT/HCPCS: 71101; 72220; 73070